=== PATIENT | female | born 1960 | race Two or more races ===

== ENCOUNTER 2021-02-03 11:00 | Emergency (ER) | payer OTHER, SELFPAY ==
--- NOTE | 2021-02-03 11:10 | ED.EXTPRO ---
HPI - Extremity Problem General Chief complaint: Extremity Problem,Nontraumatic Stated complaint: left leg painful Time Seen by Provider: 02/03/21 11:10 Source: patient, family and RN notes reviewed Mode of arrival: other (walker) Limitations: no limitations History of Present Illness HPI Narrative: 60-year-old female presents to the [facility] with family member with complaints of left leg pain and swelling since last night. Son states that she ate something and then the pain and swelling started. Was unable to urinate last night. Has had no issues urinating today. Denies chest pain or abdominal pain. No shortness of breath. Patient has a history of hypertension and son states the sores on her bilateral lower legs have been there for almost a year. Normally sees a physician at [facility]. MD Complaint: extremity pain and extremity swelling Pain Consistency: constant Location: left Related Data Home Medications Medication Instructions Recorded Confirmed chlorthalidone 25 mg PO DAILY 02/03/21 02/03/21 Allergies Allergy/AdvReac Type Severity Reaction Status Date / Time No Known Allergies Allergy Unverified 02/03/21 11:07 Review of Systems Review of Systems: All systems reviewed & are unremarkable except as noted in HPI and below Constitutional: Constitutional: Reports no additional constitutional complaints and Denies chills Eyes: Eyes: Reports no additional eye complaints ENT: Reports system reviewed and no additional complaints, except as documented Cardiovascular: Cardiovascular: Reports no additional cardiovascular complaints and Denies chest pain Respiratory: Respiratory: Reports no additional respiratory complaints, Denies cough and Denies dyspnea Gastrointestinal: Gastrointestinal: Reports no additional gastrointestinal complaints, Denies abdominal pain, Denies nausea and Denies vomiting Musculoskeletal: Musculoskeletal: Reports as per HPI and Reports joint swelling (left lower leg) Integumentary/Breasts: Skin/Breast: Reports as per HPI and Reports skin ulcer (Bilateral lower legs/ Worse on the left) Neurologic: Reports system reviewed and no additional complaints, except as documented Psychiatric: Psychiatric: Reports no additional psychiatric complaints Allergic/Immunologic: Allergic/Immunologic: Reports no additional allergic/immunologic complaints [facility] Past Medical History Medical History (Updated 02/03/21 @ 11:45 by Bozena Pulido) Hypertension Surgical History Surgical History (Updated 02/03/21 @ 11:40 by Bozena Pulido) No significant past surgical history Social History Social History (Updated 02/03/21 @ 11:40 by Bozena Pulido) Gender identity (if verbalized by the patient): Female Comments At the time of my signature, I reviewed and agree with the nursing past medical, surgical, social, and family history. There is no relevant family history pertinent to the patient complaint. Exam Const: General: well developed, alert, awake, uncomfortable (Painful left lower leg) and well groomed; No diaphoretic Nutritional Appearance: well nourished and obese Orientation/consciousness: patient oriented x3 Limitations: language barrier (Wanting son to translate) HENMT: Head: normal to inspection Eyes: Pupils: Equal, round and reactive pupils present Neck: Neck: normal visual inspection Chest: Chest palpation & inspection: normal inspection of the chest Resp: Effort & Inspection: normal respiratory effort Auscultation: clear to auscultation bilaterally Cardio: Rate: regular rate Rhythm: regular rhythm Skin: Wounds: wounds noted ulceration left lower leg without odor and with surrounding erythema (With increased warmth); no drainage Neuro: General: patient oriented x3, moves all extremities and no meningeal signs Speech: normal speech Gait exam (Neuro): gait abnormal (Favoring left leg secondary to pain and swelling) Extrem: Left lower extremity: lower leg Details: erythe
[2021-02-03 11:17] VITALS: BP 145/75; PULSE 90; RESP 18; TEMP 38; O2SAT 97
[2021-02-03 11:24] VITALS: BP 145/75; PULSE 90; RESP 18; TEMP 38; O2SAT 97
== END 2021-02-03 11:30 | disposition short-term general hospital (02) ==
PROVIDERS: Emergency Provider Nurse Practitioner
DX: R22.42 Localized swelling, mass and lump, left lower limb (principal); I10 Essential (primary) hypertension
CPT/HCPCS: 99212; G0463

== ENCOUNTER 2021-02-03 11:51 | Emergency (ER) | payer OTHER, SELFPAY ==
--- NOTE | ~2021-02-03 | XR_ITS ---
EXAMINATION: XR ankle LT min 3V EXAM DATE: 02/03/2021 13:52 INDICATION: pain/swelling X 1 Week. No known injury. TECHNIQUE: Left ankle frontal, lateral and oblique projections obtained and reviewed. There is no pr ior study for comparison. FINDINGS: The left ankle mortise appears intact. There are no acute fractures or dislocations ident ified. There is no subcutaneous gas. There is soft tissue swelling surrounding the ankle. There ar e no radiopaque foreign bodies. 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 IMPRESSION: 1. Left ankle exam without acute osseous findings. 2. Soft tissue swelling. 3. Mild osteoarthritis. Reviewed, dictated and finalized at location B.
--- NOTE | ~2021-02-03 | US_ITS ---
EXAMINATION: US venous doppler [facility] DATE: 02/03/2021 13:49 INDICATION: Left lower limb pain and swelling. TECHNIQUE: Grayscale ultrasound images without and with compression and Doppler ultrasound images of the left lower extremity veins were obtained. COMPARISON: None. FINDINGS: The visualized portions of left common femoral vein, profunda (deep) femoral vein, femoral vein, popl iteal vein, peroneal veins, posterior tibial veins, and greater saphenous vein outflow are patent. IMPRESSION: 1. No deep venous thrombosis. Reviewed, dictated and finalized at location A.
[2021-02-03 12:02] VITALS: BP 157/77; PULSE 84; RESP 18; TEMP 36.7; O2SAT 97
--- NOTE | 2021-02-03 12:39 | PC.NURSE ---
Pt presents with SOB and left leg pain and swelling, pt states she ate salty food yesterday and leg started to swell 7/10 pain
[2021-02-03 14:42] LABS: Basophils Absolute Auto 0.1 K/mm3 (0.0-0.1); Basophils Percent Auto 0.4 % (0.2-1.2); Eosinophils Percent Auto 0.1 % (0-4.4); Hematocrit 35.6 % (37.0-47.0); Hemoglobin 11.7 g/dL (12.0-15.0); Immature Granulocyte Absolute 0.07 K/mm3 (0.00-0.031); Immature Granulocyte Percent A 0.6 % (0-0.5); Lymphocytes Absolute Auto 1.65 K/mm3 (0.9-3.2); Lymphocytes Percent Auto 13.6 % (18.3-44.2); Mean Corpuscular HGB Conc 32.9 g/dl (32-36); Mean Corpuscular Volume 91.3 fl (80-100); Mean Platelet Volume 11.3 fl (7.4-10.4); Monocytes Absolute Auto 1.6 K/mm3 (0.1-0.6); Neutrophils Absolute Auto 8.8 K/mm3 (1.3-6.7); Neutrophils Percent Auto 72.3 % (45.5-73.1); Platelet Count Result 202 k/mm3 (150-375); White Blood Count 12.1 K/mm3 (4.5-10.0)
--- NOTE | 2021-02-03 15:36 | PC.NURSE ---
Assisted pt to restroom and provided pt and son with update
[2021-02-03 16:09] LABS: Anion Gap 12 mmol/L (8-16); Blood Urea Nitrogen 15 mg/dL (7-17); Calcium 10.2 mg/dL (8.4-10.2); Carbon Dioxide 27 mmol/L (22-30); Chloride 98 mmol/L (98-107); Estimated CRCL calculation 79 ml/min; Estimated Glomerular Filt Rate > 60; Glucose 103 mg/dL (65-110); Potassium 3.6 mmol/L (3.4-5.0); Sodium 137 mmol/L (137-145); Uric Acid 9.8 mg/dL (2.5-7.5)
[2021-02-03 16:15] LABS: NT Pro B Type Natriuretic Pept 393 pg/mL (5-100)
--- NOTE | 2021-02-03 16:18 | PC.NURSE ---
Called lab for chemistry results, waiting for results, updated pt son on the progress
--- NOTE | 2021-02-03 16:43 | ED.EXTPRO ---
HPI - Extremity Problem General Chief complaint: Extremity Problem,Nontraumatic Stated complaint: leg swelling, pain, from urgent care Time Seen by Provider: 02/03/21 13:07 Source: patient and family Mode of arrival: ambulatory Limitations: no limitations History of Present Illness HPI Narrative: 60-year-old female She has some chronic edema and chronic venous stasis in both legs She is here because of an increased swelling in her left lower leg and ankle accompanied by pain, x1 day She and her son relate this to possibly eating an excessively salty prepared meal the night before She does not have a fever She does not have any increase in shortness of breath Related Data Home Medications Medication Instructions Recorded Confirmed chlorthalidone 25 mg PO DAILY 02/03/21 02/03/21 Allergies Allergy/AdvReac Type Severity Reaction Status Date / Time No Known Allergies Allergy Unverified 02/03/21 11:07 Review of Systems Review of Systems: All systems reviewed & are unremarkable except as noted in HPI and below Constitutional: Constitutional: Reports no additional constitutional complaints, Denies chills, Denies fever(s) and Denies headache(s) Eyes: Eyes: Reports no additional eye complaints and Denies change in vision ENT: Denies headache(s) and Denies sore throat Cardiovascular: Cardiovascular: Denies chest pain and Denies dyspnea Respiratory: Respiratory: Denies cough and Denies dyspnea Genitourinary: Genitourinary: Denies urinary frequency Musculoskeletal: Musculoskeletal: Reports myalgias, Denies deformity, Reports arthralgias, Reports joint swelling and Denies numbness Integumentary/Breasts: Skin/Breast: Denies rash and Denies wounds Neurologic: Denies headache(s), Denies focal weakness and Denies numbness Psychiatric: Psychiatric: Reports no additional psychiatric complaints Endocrine: Endocrine: Reports no additional endocrine complaints Hematologic/Lymphatic: Hematologic/Lymphatic: Reports no additional hematologic/lymphatic complaints Allergic/Immunologic: Allergic/Immunologic: Reports no additional allergic/immunologic complaints PMFSH Past Medical History Medical History Hypertension Surgical History Surgical History No significant past surgical history Social History Social History Gender identity (if verbalized by the patient): Female Exam Const: General: cooperative, no acute distress and alert Nutritional Appearance: obese Orientation/consciousness: patient oriented x3 (alert) HENMT: Head: normal to inspection, normocephalic and atraumatic Ears: external ears normal General nose exam: no epistaxis Eyes: Conjunctivae: conjunctivae normal EOM: EOMs intact bilaterally Neck: Neck: normal visual inspection, supple and no JVD Resp: Effort & Inspection: normal respiratory effort Auscultation: other (BS =) Skin: General skin exam: no rashes or lesions noted Other: Stasis changes both lower legs Neuro: General: patient oriented x3 (alert) and moves all extremities Speech: normal speech Extrem: Other: There is tenderness, and mild swelling but no warmth or visible erythema around the left ankle Bilateral venous stasis changes No posterior calf tenderness She is able to ambulate using a walker Psych: Affect: normal affect Course Course Emergency Course: Discussed results with patient and son Vital Signs Vital signs: Vital Signs Temperature 36.7 C 02/03/21 12:02 Pulse Rate 84 02/03/21 12:02 Respiratory Rate 18 02/03/21 12:02 Blood Pressure 157/77 H 02/03/21 12:02 Pulse Oximetry 97 02/03/21 12:02 Temperature 36.7 C 02/03/21 12:02 Pulse Rate 77 02/03/21 17:21 Respiratory Rate 16 02/03/21 17:21 Blood Pressure 106/82 02/03/21 17:21 Pulse Oximetry 99 02/03/21 17:21
[2021-02-03 17:21] VITALS: BP 106/82; PULSE 77; RESP 16; O2SAT 99
== END 2021-02-03 17:23 | disposition home or self-care (01) ==
PROVIDERS: Emergency Provider Emergency Medicine
DX: L03.116 Cellulitis of left lower limb (principal); I87.2 Venous insufficiency (chronic) (peripheral); E79.0 Hyperuricemia without signs of inflammatory arthritis and tophaceous disease; M19.072 Primary osteoarthritis, left ankle and foot
CPT/HCPCS: 36415; 73610; 80048; 83880; 84550; 85025; 86140; 93971; 99284